=== PATIENT | male | born 1960 | race Caucasian/White ===

== ENCOUNTER 2019-11-03 21:04 | Emergency (ER) | payer SELFPAY ==
--- NOTE | 2019-11-03 21:06 | ED_ITS ---
Entered by Nelida Leal, acting as scribe for Lesley Delgado Documented by User: Lesley Delgado 11/03/19 21:06 HPI - Fall General: Chief Complaint: Syncope Stated Complaint: FALL Time Seen by Provider: 11/03/19 21:25 PFS ED PFSH: Social History (Updated 10/03/19 @ 14:29 by Kaitlin Yang LPN) Smoking and tobacco status: never smoked Alcohol intake: never History of recent travel: No Course Vital Signs: Vital signs: Vital Signs Temperature 98 F 11/03/19 21:19 Pulse Rate 82 11/03/19 21:31 Respiratory Rate 22 H 11/03/19 21:31 Blood Pressure 135/83 11/03/19 21:31 Pulse Oximetry 97 11/03/19 21:31 MDM - Fall Lab Data: Labs: Lab Results 11/03/19 11/03/19 11/03/19 Range/Units 22:04 22:04 22:04 WBC 6.5 (4.0-10.0) 10^3/ uL RBC 4.71 (4.1-5.3) 10^6/u L Hgb 15.6 (11.7-16.6) g/dL Hct 47.7 (42.0-52.0) % MCV 101.3 H (80-94) fL MCH 33.1 (28.0-34.0) pg MCHC 32.7 (30.0-36.0) g/dL RDW 12.6 (12.1-15.1) % Plt Count 267 (130-400) 10^3/c mm MPV 9.2 (7.4-10.4) fL Neut % (Auto) 64.5 % Lymph % (Auto) 22.3 % [place] % (Auto) 11.2 % Eos % (Auto) 0.6 % Baso % (Auto) 0.9 % Neut # (Auto) 4.2 (1.8-7.7) 10^3/u L Lymph # (Auto) 1.4 (0.8-4.8) 10^3/u L [place] # (Auto) 0.7 (0.2-0.9) 10^3/u L Eos # (Auto) 0.0 (0.0-0.8) 10^3/u L Baso # (Auto) 0.1 (0.0-0.1) 10^3/u L Nucleated RBC % (a uto) 0 % Nucleated RBCs # 0.0 /100WBC Sodium 134 L (136-145) mmol/L Potassium 4.4 (3.5-5.1) mmol/L Chloride 90 L (98-107) mmol/L Carbon Dioxide 22 (22-29) mmol/L Anion Gap 26.4 H (5-19) BUN 8 (6-20) mg/dL Creatinine 0.7 (0.7-1.2) mg/dL GFR Calculation 115.8 (90-130) mL/min Glucose 93 (65-115) mg/dL Calculated Osmolal ity 274 L (285-295) mOsm/k g Calcium 8.9 (8.5-10.5) mg/dL Magnesium 2.5 H (1.7-2.3) mg/dL Total Bilirubin 0.8 (0.15-1.2) mg/dL AST 133 H (0-40) U/L ALT 86 H (0-41) U/L Alkaline Phosphata se 92 (40-130) IU/L Creatine Kinase 153 (39-308) U/L Troponin T Baselin e 16 H (0-15) ng/mL NT-Pro-B Natriuret Pep 21 (0-125) pg/mL Total Protein 7.0 (6.6-8.7) g/dL Albumin 4.1 (3.5-5.2) g/dL Globulin 2.9 (1.3-4.6) g/dL Ethyl Alcohol 310 H* (0-10) mg/dL Discharge Plan Discharge Prescriptions: No Action aspirin 500 mg tablet 500 mg PO Q4H RF: 0 acetaminophen [Tylenol 8 Hour] 650 mg tablet extended release 650 mg PO Q8H RF: 0 magnesium salicylate 600 mg tablet 1,200 mg PO DAILY RF: 0 ascorbic acid (vitamin C) 1,000 mg tablet 1 gm PO DAILY RF: 0 metoprolol tartrate 50 mg tablet 50 mg PO BID 30 Days Qty: 60 RF: 2 vitamin B complex [Super B-50 Complex] Capsule 1 cap PO DAILY RF: 0 cetirizine [Zyrtec] 10 mg tablet 10 mg PO DAILY RF: 0 lisinopril-hydrochlorothiazide 10-12.5 mg tablet 1 tab PO DAILY 30 Days Qty: 30 RF: 2 omeprazole 20 mg capsule,delayed release(DR/EC) 20 mg PO DAILY 30 Days Qty: 30 RF: 2 famotidine [Pepcid] 20 mg tablet 20 mg PO .at bedtime 30 Days Qty: 30 RF: 2 trazodone 50 mg tablet 50 mg PO .at bedtime PRN (Reason: insomnia) 30 Days Qty: 30 RF: 2 diclofenac sodium 1 % gel 2 gm TOPICAL .twice daily 30 Days Qty: 100 RF: 5 Coding Level of Care Code ED Barrel Builder for Chg Fwd Exam Comprehensive Documented by User: KIRA Klein 11/03/19 23:23 HPI - Fall General: Chief Complaint: Syncope Stated Complaint: FALL Time Seen by Provider: 11/03/19 21:25 Source: patient Mode of arrival: ambulatory Limitations: no limitations History of Present Illness: HPI Narrative: Patient comes in today for complaints of passing out and falling. Patient now has complaints of low back pain due to his fall. Patient describes event as he got up to go to bed to lay down in order to get the swelling L of his feet and then the next time he remembered anything is he woke up finding himself on the floor approximately 5 hours from the time he went to get up. Patient appears well. Patient does appear to moderate pain due to his low back discomfort. Patient does have a history of atrial fib GERD,coronary artery disease ,essential hypertension ,cervical stenosis ,fibromyalgia and mastitis in the right breast. Review of Systems General: Reports: 10 or more systems reviewed and unremarkable except in HPI and below Musc: Reports: back pain Neuro: Reports: other (syncopal episode) [facility] ED PFSH: Social History (Updated 10/03/19 @ 14:29 by Kaitlin Yang LPN) Smoking and tobacco status: never smoked Alcohol intake: never History of recent travel: No Physical Exam Const: COMMON NORMALS: no apparent distress and oriented x3 GENERAL APPEARANCE: cooperative HENMT: COMMON NORMALS: normocephalic, external ears normal, EAC's normal, TM's normal bilaterally and external nose normal HEAD & SCALP: normal to inspection and normocephalic FACE & SINUS: normal facial exam NOSE: external nose normal GENERAL EAR: hearing not grossly impaired EXTERNAL EAR: Yes external ears normal EXTERNAL AUDITORY CANAL: EAC's normal TYMPANIC MEMBRANE: TM's normal bilaterally MOUTH: oral and palatal mucosa normal THROAT: posterior oropharynx normal Eye: COMMON NORMALS: PERRL and EOMs intact bilaterally PUPIL: Yes PERRL Neck/C-Spine: COMMON NORMALS: full ROM and no lymphadenopathy Lymph: LYMPHATIC: no lymphedema noted Chest: COMMONS NORMALS: inspection of chest normal and palpation of chest normal Resp: COMMON NORMALS: normal respiratory effort and clear to auscultation bilaterally AUSCULTATION: clear to auscultation bilaterally Cardio: COMMON NORMALS: regular rate and regular rhythm RATE: regular rate RHYTHM: regular rhythm GI: COMMON NORMALS: normal to inspection, nondistended, normoactive bowel sounds and non-tender : COMMON NORMALS: Yes no CVA tenderness BLADDER/KIDNEY EXAM: Yes no CVA tenderness Back/Pelvis: COMMON NORMALS: no CVA tenderness and thoracic and lumbar spine normal to inspection LUMBAR SPINE/LOWER BACK: Yes paraspinal muscle tenderness Extremity: COMMON NORMALS: normal to inspection GENERAL: No edema Neuro: COMMON NORMALS: oriented x3, moves all extremities and no focal motor deficits Psych: COMMON NORMALS: mental status grossly normal and cooperative Skin: COMMON NORMALS: no rashes or lesions noted GENERAL SKIN EXAM: no rashes or lesions noted Course ED course: 2305, discussed with patient his increased blood alcohol level at 310. Patient did report drinking 2 drinks today when confronted that it would take more than 2 drinks to become a blood alcohol level of 310 he did state he has been using alcohol to control his pain. Discussed with patient that alcohol can increase his atrial fib problem and cause more issues with his pain patient was tearful at times due to this and reports difficulty with his pain. I offered referral to pain management to assist further with his chronic neck and back pain. Patient did agree to this. Patient reports he would work on controlling his drinking better and reduce his drinks to no more than 2 a day. Vital Signs: Vital signs: Vital Signs Temperature 98 F 11/03/19 21:19 Pulse Rate 82 11/03/19 21:31 Respiratory Rate 22 H 11/03/19 21:31 Blood Pressure 135/83 11/03/19 21:31 Pulse Oximetry 97 11/03/19 21:31 MDM - Fall Lab Data: Labs: Lab Results 11/03/19 11/03/19 11/03/19 Range/Units 22:04 22:04 22:04 WBC 6.5 (4.0-10.0) 10^3/ uL RBC 4.71 (4.1-5.3) 10^6/u L Hgb 15.6 (11.7-16.6) g/dL Hct 47.7 (42.0-52.0) % MCV 101.3 H (80-94) fL MCH 33.1 (28.0-34.0) pg MCHC 32.7 (30.0-36.0) g/dL RDW 12.6 (12.1-15.1) % Plt Count 267 (130-400) 10^3/c mm MPV 9.2 (7.4-10.4) fL Neut % (Auto) 64.5 % Lymph % (Auto) 22.3 % [place] % (Auto) 11.2 % Eos % (Auto) 0.6 % Baso % (Auto) 0.9 % Neut # (Auto) 4.2 (1.8-7.7) 10^3/u L Lymph # (Auto) 1.4 (0.8-4.8) 10^3/u L [place] # (Auto) 0.7 (0.2-0.9) 10^3/u L Eos # (Auto) 0.0 (0.0-0.8) 10^3/u L Baso # (Auto) 0.1 (0.0-0.1) 10^3/u L Nucleated RBC % (a uto) 0 % Nucleated RBCs # 0.0 /100WBC Sodium 134 L (136-145) mmol/L Potassium 4.4 (3.5-5.1) mmol/L Chloride 90 L (98-107) mmol/L Carbon Dioxide 22 (22-29) mmol/L Anion Gap 26.4 H (5-19) BUN 8 (6-20) mg/dL Creatinine 0.7 (0.7-1.2) mg/dL GFR Calculation 115.8 (90-130) mL/min Glucose 93 (65-115) mg/dL Calculated Osmolal ity 274 L (285-295) mOsm/k g Calcium 8.9 (8.5-10.5) mg/dL Magnesium 2.5 H (1.7-2.3) mg/dL Total Bilirubin 0.8 (0.15-1.2) mg/dL AST 133 H (0-40) U/L ALT 86 H (0-41) U/L Alkaline Phosphata se 92 (40-130) IU/L Creatine Kinase 153 (39-308) U/L Troponin T Baselin e 16 H (0-15) ng/mL NT-Pro-B Natriuret Pep 21 (0-125) pg/mL Total Protein 7.0 (6.6-8.7) g/dL Albumin 4.1 (3.5-5.2) g/dL Globulin 2.9 (1.3-4.6) g/dL Ethyl Alcohol 310 H* (0-10) mg/dL EKG Data^: EKG 1: Attestation: I personally reviewed and interpreted this EKG as follows: (2222, SR, regular rate 78 bpm, no ectopy, no ST elevation) Discharge Plan Discharge Prescriptions: No Action aspirin 500 mg tablet 500 mg PO Q4H RF: 0 acetaminophen [Tylenol 8 Hour] 650 mg tablet extended release 650 mg PO Q8H RF: 0 magnesium salicylate 600 mg tablet 1,200 mg PO DAILY RF: 0 ascorbic acid (vitamin C) 1,000 mg tablet 1 gm PO DAILY RF: 0 metoprolol tartrate 50 mg tablet 50 mg PO BID 30 Days Qty: 60 RF: 2 vitamin B complex [Super B-50 Complex] Capsule 1 cap PO DAILY RF: 0 cetirizine [Zyrtec] 10 mg tablet 10 mg PO DAILY RF: 0 lisinopril-hydrochlorothiazide 10-12.5 mg tablet 1 tab PO DAILY 30 Days Qty: 30 RF: 2 omeprazole 20 mg capsule,delayed release(DR/EC) 20 mg PO DAILY 30 Days Qty: 30 RF: 2 famotidine [Pepcid] 20 mg tablet 20 mg PO .at bedtime 30 Days Qty: 30 RF: 2 trazodone 50 mg tablet 50 mg PO .at bedtime PRN (Reason: insomnia) 30 Days Qty: 30 RF: 2 diclofenac sodium 1 % gel 2 gm TOPICAL .twice daily 30 Days Qty: 100 RF: 5 Coding Level of Care Code ED Barrel Builder for [place] Fwd Exam Comprehensive
[2019-11-03 21:19] VITALS: BP 135/83; PULSE 82; RESP 24; TEMP 36.6; O2SAT 97; BMI 24.4
[2019-11-03 21:31] VITALS: BP 135/83; PULSE 82; RESP 22; O2SAT 97
--- NOTE | 2019-11-03 21:32 | ECG_ITS ---
Measurements Intervals [place] Rate: 78 P: -13 MD: 167 QRS: -12 QRSD: 113 T: 109 QT: 309 QTc: 353 SINUS RHYTHM MODERATE INTRAVENTRICULAR CONDUCTION DELAY [110+ ms QRS DURATION] ST DEVIATION AND MODERATE T-WAVE ABNORMALITY, CONSIDER LATERAL ISCHEMIA [-0.1+ mV mV T WAVE IN I/aVL/V5/V6] No previous ECG available for comparison Electronically Signed On 11-04-2019 9:11:49 CDT by Alice Gordon [email or web address]
--- NOTE | 2019-11-03 21:32 | CTR_ITS ---
PROCEDURE INFORMATION: Exam: CT Head Without Contrast Exam date and time: 11/03/2019 9:35 PM Age: 59 years old Clinical indication: Syncope and collapse; Patient HX: Syncope episode TECHNIQUE: Imaging protocol: Computed tomography of the head without contrast. Total DLP: 894.88 mGy-cm Radiation optimization: All CT scans at this facility use at least one of these dose optimization techniques: automated exposure control; mA and/or kV adjustment per patient size (includes targeted exams where dose is matched to clinical indication); or iterative reconstruction. COMPARISON: No relevant prior studies available. FINDINGS: Brain: There is mild diffuse cerebral atrophy. Ventricles: Normal. No ventriculomegaly. Bones/joints: Unremarkable. No acute fracture. Sinuses: Visualized sinuses are unremarkable. No fluid levels. Mastoid air cells: Visualized mastoid air cells are well aerated. Soft tissues: Unremarkable. CT/CT head wo con* [id number] IMPRESSION: There are no acute intracranial findings. Radiation Dose CTDIVOL = (mGy): DLP = 894.88 (mGy-cm)
--- NOTE | 2019-11-03 21:32 | CTR_ITS ---
PROCEDURE INFORMATION: Exam: CT Lumbar Spine Without Contrast Exam date and time: 11/03/2019 9:35 PM Age: 59 years old Clinical indication: Low back pain; Patient HX: C/O lbp after a syncope episode; Additional info: Fall pain TECHNIQUE: Imaging protocol: Computed tomography images of the lumbar spine without contrast. Total DLP: 2363.22 mGy-cm Radiation optimization: All CT scans at this facility use at least one of these dose optimization techniques: automated exposure control; mA and/or kV adjustment per patient size (includes targeted exams where dose is matched to clinical indication); or iterative reconstruction. COMPARISON: No relevant prior studies available. FINDINGS: Vertebrae: No acute fracture. Normal alignment. Discs/Spinal canal/Neural foramina: No disc herniations. No spinal canal stenosis. No neural foraminal narrowing. Soft tissues: Unremarkable. CT/CT lumbar spine wo con* [id number] IMPRESSION: No acute findings. Radiation Dose CTDIVOL = (mGy): DLP = 2363.22 (mGy-cm)
--- NOTE | 2019-11-03 21:32 | XR_ITS ---
WS: [id number] XR chest 1V portable [id number] REASON FOR EXAM: syncope FINDINGS: The heart and mediastinal interfaces normal. A fat pad changes are seen at the left costophrenic angle. The lung dela cruz are well aerated. No pneumonia, pulmonary edema, pleural effusion, mass effect, or pn eumothorax. The hilum and apices normal. XR/XR chest 1V portable [id number] IMPRESSION: Negative chest for active pathology.
[2019-11-03] MEDS: ketorolac 30 mg/mL INJ 15 MG IVP (21:55)
[2019-11-03] MEDS: morphine 4 mg/mL SDV 1 mL IVP ×2 (21:55→22:36)
[2019-11-03 22:16] LABS: Basophils # 0.1 10^3/uL (0.0-0.1); Basophils % 0.9 %; Eosinophils % 0.6 %; Hematocrit 47.7 % (42.0-52.0); Hemoglobin 15.6 g/dL (11.7-16.6); Lymphocytes # 1.4 10^3/uL (0.8-4.8); Lymphocytes % 22.3 %; Mean Corpuscular HGB Conc 32.7 g/dL (30.0-36.0); Mean Corpuscular Hemoglobin 33.1 pg (28.0-34.0); Mean Corpuscular Volume 101.3 fL (80-94); Mean Platelet Volume 9.2 fL (7.4-10.4); Monocytes # 0.7 10^3/uL (0.2-0.9); Monocytes % 11.2 %; Neutrophils # 4.2 10^3/uL (1.8-7.7); Neutrophils % 64.5 %; Nucleated Red Blood Cells % 0 %; Platelet Count 267 10^3/cmm (130-400); Red Blood Count 4.71 10^6/uL (4.1-5.3); Red Cell Distribution Width 12.6 % (12.1-15.1); White Blood Count 6.5 10^3/uL (4.0-10.0)
[2019-11-03 22:41] LABS: Alanine Aminotransferase 86 U/L (0-41); Albumin Level 4.1 g/dL (3.5-5.2); Alkaline Phosphatase 92 IU/L (40-130); Anion Gap 26.4 (5-19); Aspartate Amino Transferase 133 U/L (0-40); Blood Urea Nitrogen 8 mg/dL (6-20); Calcium 8.9 mg/dL (8.5-10.5); Carbon Dioxide 22 mmol/L (22-29); Chloride 90 mmol/L (98-107); Creatine Phosphokinase 153 U/L (39-308); Globulin 2.9 g/dL (1.3-4.6); Glomerular Filtration Rate 115.8 mL/min (90-130); Glucose 93 mg/dL (65-115); Magnesium 2.5 mg/dL (1.7-2.3); NT Pro B Type Natriuretic Pept 21 pg/mL (0-125); Osmolality Calculated 274 mOsm/kg (285-295); Potassium 4.4 mmol/L (3.5-5.1); Sodium 134 mmol/L (136-145); Total Bilirubin 0.8 mg/dL (0.15-1.2)
[2019-11-03 22:42] LABS: Alcohol Level 310 mg/dL (0-10)
[2019-11-03 22:56] LABS: Troponin(5th) Baseline 16 ng/mL (0-15)
[2019-11-03] MEDS: sodium chloride 0.9% 1,000 ML 999 ML IV (23:07)
[2019-11-04 00:01] VITALS: BP 148/92; PULSE 88; RESP 16; O2SAT 99
--- NOTE | 2019-11-04 00:19 | W.ED.SYNCOPE ---
HPI - Syncope General: Chief Complaint: Syncope Stated Complaint: FALL Time Seen by Provider: 11/03/19 21:25 History of Present Illness: HPI narrative: Patient comes in today by EMS for syncopal episode. Patient reported that he had got up out of his chair and headed into laydown on his bed when the next time he woke up it was 5 hours later and he found himself on the floor. Patient has a history of hypertension, coronary artery disease, GERD, atrial fib, fibromyalgia, and chronic pain. Patient appears well. Patient appears in no acute distress. Patient reports occasional drinking, denies smoking or use of drugs. Review of Systems General: Reports: 10 or more systems reviewed and unremarkable except in HPI and below Neuro: Reports: other (syncope) PFS ED PFSH: Social History (Updated 10/03/19 @ 14:29 by Kaitlin Yang LPN) Smoking and tobacco status: never smoked Alcohol intake: never History of recent travel: No Physical Exam Const: COMMON NORMALS: no apparent distress and oriented x3 GENERAL APPEARANCE: cooperative HENMT: COMMON NORMALS: normocephalic, external ears normal, EAC's normal, TM's normal bilaterally and external nose normal HEAD & SCALP: normal to inspection and normocephalic FACE & SINUS: normal facial exam NOSE: external nose normal GENERAL EAR: hearing not grossly impaired EXTERNAL EAR: Yes external ears normal EXTERNAL AUDITORY CANAL: EAC's normal TYMPANIC MEMBRANE: TM's normal bilaterally MOUTH: oral and palatal mucosa normal THROAT: posterior oropharynx normal Eye: COMMON NORMALS: PERRL and EOMs intact bilaterally PUPIL: Yes PERRL Neck/C-Spine: COMMON NORMALS: full ROM and no lymphadenopathy Lymph: LYMPHATIC: no lymphedema noted Chest: COMMONS NORMALS: inspection of chest normal and palpation of chest normal Resp: COMMON NORMALS: normal respiratory effort and clear to auscultation bilaterally AUSCULTATION: clear to auscultation bilaterally Cardio: COMMON NORMALS: regular rate and regular rhythm RATE: regular rate RHYTHM: regular rhythm GI: COMMON NORMALS: normal to inspection, nondistended, normoactive bowel sounds and non-tender : COMMON NORMALS: Yes no CVA tenderness BLADDER/KIDNEY EXAM: Yes no CVA tenderness Back/Pelvis: COMMON NORMALS: no CVA tenderness and thoracic and lumbar spine normal to inspection Extremity: COMMON NORMALS: normal to inspection GENERAL: No edema Neuro: COMMON NORMALS: oriented x3, moves all extremities and no focal motor deficits Psych: COMMON NORMALS: mental status grossly normal and cooperative Skin: COMMON NORMALS: no rashes or lesions noted GENERAL SKIN EXAM: no rashes or lesions noted Course ED course: 2299, discussed with patient his elevated alcohol level. Patient reports that he drinks in order to control his pain. Patient appears upset about the high levels of his alcohol. Patient reports that he started drinking when he was unable to have medication for his pain. Discussed with patient the concerns for his atrial fib being caused by alcoholism. Patient reports understanding and states he will try to decrease his alcohol consumption to 2 drinks a day. Vital Signs: Vital signs: Vital Signs Temperature 98 F 11/03/19 21:19 Pulse Rate 82 11/03/19 21:31 Respiratory Rate 22 H 11/03/19 21:31 Blood Pressure 135/83 11/03/19 21:31 Pulse Oximetry 97 11/03/19 21:31 MDM - Syncope MDM Narrative: Medical decision making narrative: Patient comes in today with an episode of syncope versus near syncope. Patient lost consciousness and was out for about 4 hours. Exam noted abdomen soft nontender skin was warm and dry patient had a tremor at rest. Vital signs were normal. Respirations were even lungs were clear to auscultation. Mild lower extremity edema below the mid lower leg. Differential diagnosis includes ACS, CVA, substance abuse, vasovagal syndrome, injury. CT of the head was negative for any abnormality. CT of the lumbar spine was negative for any abnormality. EKG was in sinus rhythm without any change at 2 hours. Initial troponin was at 15 with the second troponin being 17 but with no significant change on troponin delta. Blood cell count was normal. Patient sodium was 134 potassium was 4.4. EtOH was 310. Patient was medicated with 100 mg thiamine, and 1 L of IV fluids for alcohol ingestion. Patient had been given Toradol and morphine for complaints of back pain. Patient was monitored for 3 hours continued to be alert and oriented without any deficits. Patient was able to ambulate prior to discharge and was released to 's care. Spouse reported understanding and will work with regarding his alcohol abuse. Patient was written prescription for furosemide to assist with his swelling in his lower extremities. Lab Data: Labs: Lab Results 11/03/19 11/03/19 11/03/19 Range/Units 22:04 22:04 22:04 WBC 6.5 (4.0-10.0) 10^3/ uL RBC 4.71 (4.1-5.3) 10^6/u L Hgb 15.6 (11.7-16.6) g/dL Hct 47.7 (42.0-52.0) % MCV 101.3 H (80-94) fL MCH 33.1 (28.0-34.0) pg MCHC 32.7 (30.0-36.0) g/dL RDW 12.6 (12.1-15.1) % Plt Count 267 (130-400) 10^3/c mm MPV 9.2 (7.4-10.4) fL Neut % (Auto) 64.5 % Lymph % (Auto) 22.3 % [place] % (Auto) 11.2 % Eos % (Auto) 0.6 % Baso % (Auto) 0.9 % Neut # (Auto) 4.2 (1.8-7.7) 10^3/u L Lymph # (Auto) 1.4 (0.8-4.8) 10^3/u L [place] # (Auto) 0.7 (0.2-0.9) 10^3/u L Eos # (Auto) 0.0 (0.0-0.8) 10^3/u L Baso # (Auto) 0.1 (0.0-0.1) 10^3/u L Nucleated RBC % (a uto) 0 % Nucleated RBCs # 0.0 /100WBC Sodium 134 L (136-145) mmol/L Potassium 4.4 (3.5-5.1) mmol/L Chloride 90 L (98-107) mmol/L Carbon Dioxide 22 (22-29) mmol/L Anion Gap 26.4 H (5-19) BUN 8 (6-20) mg/dL Creatinine 0.7 (0.7-1.2) mg/dL GFR Calculation 115.8 (90-130) mL/min Glucose 93 (65-115) mg/dL Calculated Osmolal ity 274 L (285-295) mOsm/k g Calcium 8.9 (8.5-10.5) mg/dL Magnesium 2.5 H (1.7-2.3) mg/dL Total Bilirubin 0.8 (0.15-1.2) mg/dL AST 133 H (0-40) U/L ALT 86 H (0-41) U/L Alkaline Phosphata se 92 (40-130) IU/L Creatine Kinase 153 (39-308) U/L Troponin T Baselin e 16 H (0-15) ng/mL Troponin T 120 Min sly (0-15) ng/mL Delta Troponin T (0-10) ABS# NT-Pro-B Natriuret Pep 21 (0-125) pg/mL Total Protein 7.0 (6.6-8.7) g/dL Albumin 4.1 (3.5-5.2) g/dL Globulin 2.9 (1.3-4.6) g/dL Urine Color (Yellow) Urine Appearance (CLEAR) Urine pH (5-7) Ur Specific Gravit y (1.005-1.030) Urine Protein (Negative) Urine Glucose (UA) (Normal) Urine Ketones (Negative) Urine Blood (Negative) Urine Nitrate (Negative) Urine Bilirubin (NEGATIVE) Urine Urobilinogen (Negative) mg/dL Ur Leukocyte Ca ase (Negative) Ethyl Alcohol 310 H* (0-10) mg/dL 11/04/19 11/04/19 Range/Units 00:08 00:43 WBC (4.0-10.0) 10^3/ uL RBC (4.1-5.3) 10^6/u L Hgb (11.7-16.6) g/dL Hct (42.0-52.0) % MCV (80-94) fL MCH (28.0-34.0) pg MCHC (30.0-36.0) g/dL RDW (12.1-15.1) % Plt Count (130-400) 10^3/c mm MPV (7.4-10.4) fL Neut % (Auto) % Lymph % (Auto) % [place] % (Auto) % Eos % (Auto) % Baso % (Auto) % Neut # (Auto) (1.8-7.7) 10^3/u L Lymph # (Auto) (0.8-4.8) 10^3/u L [place] # (Auto) (0.2-0.9) 10^3/u L Eos # (Auto) (0.0-0.8) 10^3/u L Baso # (Auto) (0.0-0.1) 10^3/u L Nucleated RBC % (a uto) % Nucleated RBCs # /100WBC Sodium (136-145) mmol/L Potassium (3.5-5.1) mmol/L Chloride (98-107) mmol/L Carbon Dioxide (22-29) mmol/L Anion Gap (5-19) BUN (6-20) mg/dL Creatinine (0.7-1.2) mg/dL GFR Calculation (90-130) mL/min Glucose (65-115) mg/dL Calculated Osmolal ity (285-295) mOsm/k g Calcium (8.5-10.5) mg/dL Magnesium (1.7-2.3) mg/dL Total Bilirubin (0.15-1.2) mg/dL AST (0-40) U/L ALT (0-41) U/L Alkaline Phosphata se (40-130) IU/L Creatine Kinase (39-308) U/L Troponin T Baselin e (0-15) ng/mL Troponin T 120 Min sly 17.08 H (0-15) ng/mL Delta Troponin T 1.08 (0-10) ABS# NT-Pro-B Natriuret Pep (0-125) pg/mL Total Protein (6.6-8.7) g/dL Albumin (3.5-5.2) g/dL Globulin (1.3-4.6) g/dL Urine Color Yellow (Yellow) Urine Appearance Clear (CLEAR) Urine pH 6.5 (5-7) Ur Specific Gravit y 1.010 (1.005-1.030) Urine Protein Neg (Negative) Urine Glucose (UA) Norm (Normal) Urine Ketones 1+ H (Negative) Urine Blood Neg (Negative) Urine Nitrate Negative (Negative) Urine Bilirubin Neg (NEGATIVE) Urine Urobilinogen Norm (Negative) mg/dL Ur Leukocyte Ca ase Negative (Negative) Ethyl Alcohol (0-10) mg/dL EKG Data^: EKG 1: Attestation: I personally reviewed and interpreted this EKG as follows: (2228, SR regular rate 77 bpm, no ectopy, no ST elevation) EKG 2: Attestation: I personally reviewed and interpreted this EKG as follows: (0033, SR, regular rate 78 bpm, no ectopy, no ST elevation, no change from prior) Discharge Plan Discharge Patient Disposition: Home, Self-Care Clinical Impression: Alcohol intoxication Qualifiers: Complication of substance-induced condition: uncomplicated Qualified Code(s): F10.920 - Alcohol use, unspecified with intoxication, uncomplicated Chronic back pain Qualifiers: Back pain location: back pain in unspecified location Back pain laterality: unspecified Qualified Code(s): M54.9 - Dorsalgia, unspecified Condition: Stable Prescriptions: New furosemide 20 mg tablet 20 mg PO DAILY PRN (Reason: edema) Qty: 7 RF: 0 No Action aspirin 500 mg tablet 500 mg PO Q4H RF: 0 acetaminophen [Tylenol 8 Hour] 650 mg tablet extended release 650 mg PO Q8H RF: 0 magnesium salicylate 600 mg tablet 1,200 mg PO DAILY RF: 0 ascorbic acid (vitamin C) 1,000 mg tablet 1 gm PO DAILY RF: 0 metoprolol tartrate 50 mg tablet 50 mg PO BID 30 Days Qty: 60 RF: 2 vitamin B complex [Super B-50 Complex] Capsule 1 cap PO DAILY RF: 0 cetirizine [Zyrtec] 10 mg tablet 10 mg PO DAILY RF: 0 lisinopril-hydrochlorothiazide 10-12.5 mg tablet 1 tab PO DAILY 30 Days Qty: 30 RF: 2 omeprazole 20 mg capsule,delayed release(DR/EC) 20 mg PO DAILY 30 Days Qty: 30 RF: 2 famotidine [Pepcid] 20 mg tablet 20 mg PO .at bedtime 30 Days Qty: 30 RF: 2 trazodone 50 mg tablet 50 mg PO .at bedtime PRN (Reason: insomnia) 30 Days Qty: 30 RF: 2 diclofenac sodium 1 % gel 2 gm TOPICAL .twice daily 30 Days Qty: 100 RF: 5 Discharge Orders: Discharge Order (Routine); Ordered 11/04/19 Ordered By: Jose Cruz Referrals: Kamilla Finley MD [Family Provider] - Discharge Diet: Usual diet Discharge Activity: Increase activity as tolerated Patient Instructions: Chronic Pain (ED) Activity Restrictions/Additional Instructions: Home and rest Drink plenty of fluids Activity as tolerated Drink no more than 2 alcohol containing beverages a day Case management to assist with pain management Follow-up with primary care regarding alcohol abuse Coding Level of Care Code ED [employer] Department Supervisor for [employer] Fwd Exam Comprehensive
[2019-11-04 00:36] LABS: Troponin 5 2HR 17.08 ng/mL (0-15); Troponin 5 2HR Delta 1.08 ABS# (0-10)
[2019-11-04 00:50] LABS: Add Urine Microscopic? NO
[2019-11-04 00:52] LABS: Bilirubin Urine Neg (NEGATIVE); Blood Urine Neg (Negative); Glucose Urine UA Norm (Normal); Ketones Urine 1+ (Negative); Leukocyte Esterase Urine Negative (Negative); Nitrate Urine Negative (Negative); Protein Urine Neg (Negative); Urine Appearance Clear (CLEAR); Urine Color Yellow (Yellow); Urobilinogen Urine Norm (Negative); pH Urine 6.5 (5-7)
[2019-11-04 01:03] VITALS: BP 138/74; PULSE 90; RESP 18; O2SAT 96
[2019-11-04 01:04] VITALS: BP 138/74; PULSE 90; RESP 18; O2SAT 96
[2019-11-04 01:28] LABS: Amphetamines Screen Urine Negative (Negative); Barbiturates Screen Urine Negative (Negative); Benzodiazepines Screen Urine Negative (Negative); Cocaine Screen Urine Negative (Negative); Opiate Screen Urine Positive (Negative); PCP Screen Urine Negative (Negative); THC Screen Urine Negative (Negative)
--- NOTE | 2019-11-05 12:27 | DCPLANNER ---
manager of financial reporting had message to schedule a follow up appointment for patient with pain management. manager of financial reporting called patient, unable to speak with patient at this time, left a voicemail for patient to return case planner phone call. manager of financial reporting was going to explain to patient, that case technician was unable to refer patient to pain management, that the referral to pain management would need to come from patients primary care physician.
== END 2019-11-04 01:08 | disposition home or self-care (01) ==
PROVIDERS: Emergency Provider Nurse Practitioner Family; Family Provider Family Medicine
DX: F10.129 Alcohol abuse with intoxication, unspecified (principal); M54.9 Dorsalgia, unspecified; G89.29 Other chronic pain; I48.91 Unspecified atrial fibrillation; I10 Essential (primary) hypertension; I25.10 Atherosclerotic heart disease of native coronary artery without angina pectoris; Z79.82 Long term (current) use of aspirin
CPT/HCPCS: 12345; 70450; 71045; 72131; 80053; 80306; 80307; 81003; 82550; 83735; 83880; 84484; 85025; 93005; 93010; 96361; 96374; 96375; 96376; 99283; 99284; J1885; J2270; J3411; J7030

== ENCOUNTER 2020-03-31 20:22 | Emergency (ER) | payer SELFPAY ==
[2020-03-31 20:25] VITALS: BP 163/101; PULSE 97; RESP 18; TEMP 36.6; O2SAT 98; BMI 32.5
--- NOTE | 2020-03-31 20:55 | ED_ITS ---
HPI - General Adult General: Chief complaint: General Medical Stated complaint: PAIN ALL OVER/MHE Time Seen by Provider: 03/31/20 20:32 History of Present Illness: HPI narrative: Patient is a 59-year-old male who comes to the ED via EMS due to back pain. Patient is extremely emotional and upset due to pain. Patient said his called EMS to get him help because of his severe pain today. He says all of his pain is located in his mid and lower back. Patient does not want to be here and states that he would like to go home. He is refusing any blood work. Patient denies any SI, HI or hallucinations. EMS gave 30 mg of IV Toradol in route to [facility] Associated symptoms: Deny chest pain, dyspnea, headache(s), nausea, rash, palpitations or vomiting Review of Systems Const: Denies: fever(s), chills or fatigue Eyes: Denies: change in vision or eye discomfort ENMT: Denies: throat pain, odynophagia, nasal discharge or nasal congestion Card: Denies: chest pain, palpitations, edema, swelling of feet/ankles, dyspnea on exertion or orthopnea Resp: Denies: dyspnea, productive cough or non-productive cough GI: Denies: abdominal pain, nausea, vomiting, diarrhea, constipation or hematochezia : Denies: flank pain, difficulty urinating, dysuria or hematuria Musc: Reports: back pain; Denies: neck pain or extremity swelling Skin/Breast: Denies: rash or new lesions Neuro: Denies: headache(s), numbness in extremities or weakness in extremities PFS ED PFSH: Medical History Cervical stenosis of spine Chronic GERD Coronary artery disease Essential hypertension Fibromyalgia Insomnia Right bundle branch block (RBBB) Social History Smoking and tobacco status: never smoked Alcohol intake: never History of recent travel: No Physical Exam Const: COMMON NORMALS: no acute distress, patient oriented x3 and alert GENERAL APPEARANCE: cooperative and comfortable HENMT: COMMON NORMALS: normocephalic HEAD & SCALP: normocephalic MOUTH: Normal oral and palatal mucosa present THROAT: posterior oropharynx normal and uvula midline Eye: COMMON NORMALS: Equal, round and reactive pupils present PUPIL: Yes Equal, round and reactive pupils present Neck/C-Spine: COMMON NORMALS: supple GENERAL: Yes normal visual inspection Resp: COMMON NORMALS: normal respiratory effort, No retractions, No use of accessory muscles and clear to auscultation bilaterally AUSCULTATION: clear to auscultation bilaterally Cardio: COMMON NORMALS: regular rate, regular rhythm, S1 normal heart sound present, S2 normal heart sound present, No gallops present (Cardio), No clicks present (Cardio), No murmurs present (Cardio) and Peripheral pulses 2+ throughout RATE: regular rate RHYTHM: regular rhythm HEART SOUNDS: S1 normal heart sound present and S2 normal heart sound present PERIPHERAL PULSES: Peripheral pulses 2+ throughout GI: COMMON NORMALS: Normal to inspection, nondistended, normoactive bowel sounds present, Soft to palpation, non-tender and no masses PALPATION: Yes Soft to palpation : COMMON NORMALS: Yes no CVA tenderness BLADDER/KIDNEY EXAM: Yes no CVA tenderness Back/Pelvis: COMMON NORMALS: no CVA tenderness THORACIC SPINE/UPPER BACK: Yes paraspinal muscle tenderness Thoracic paraspinal muscle tenderness: bilateral LUMBAR SPINE/LOWER BACK: Yes paraspinal muscle tenderness Lumbar paraspinal muscle tenderness: bilateral Extremity: COMMON NORMALS: normal to inspection and no pedal edema Neuro: COMMON NORMALS: patient oriented x3 and moves all extremities SENSORIUM/ORIENTATION: Yes alert Skin: COMMON NORMALS: no rashes or lesions noted GENERAL SKIN EXAM: no rashes or lesions noted and dry skin Course Reevaluation(s): Reevaluation #1: Patient does not want to be here and states that he would like to go home. He is refusing any blood work. Time: 21:13 Reevaluation #2: I talked with patient about about plan of care since he was refusing any labs. Patient denies any thoughts of harming himself or others. Denies any hallucinations. Patient requested some Tylenol and aspirin for the pain while here in the ED and then would like to be discharged. Vital Signs: Vital signs: Vital Signs Temperature 97.7 F 03/31/20 22:45 Pulse Rate 76 03/31/20 22:45 Respiratory Rate 20 H 03/31/20 22:45 Blood Pressure 144/97 03/31/20 22:45 Pulse Oximetry 97 03/31/20 22:45 MDM - General Adult MDM Narrative: Medical decision making narrative: Patient is a 59-year-old male who comes to the ED with back pain via EMS. EMS stated they thought patient needed a mental health evaluation. Patient refused any labs and denied any thoughts of SI, HI or hallucinations. Patient did not want to stay here in the ED and stated he only wanted some Tylenol and aspirin for pain and then would like to be d/c home. Denied any narcotic. Patient was given an IV dose of Toradol by EMS while he was in route to the ED. I discussed with patient that I could send him home with a prescription for ketorolac but he would need to stop taking his magnesium salicylate and aspirin while taking ketorolac. Patient understood instead he would stop taking those medications while taking the ketorolac. Patient was discharged with a prescription for ketorolac and told to follow-up with PCP in 7 to 10 days for reevaluation. Patient understood and agreed with plan. Return to ED precautions given. Discharge Plan Discharge Patient Disposition: Home Clinical Impression: Chronic back pain Qualifiers: Back pain location: thoracic back pain Back pain laterality: bilateral Qualified Code(s): M54.6 - Pain in thoracic spine Condition: Stable Prescriptions: New ketorolac 10 mg tablet 10 mg PO Q6H PRN (Reason: pain) 5 Days RF: 0 No Action aspirin 500 mg tablet 500 mg PO Q4H RF: 0 acetaminophen [Tylenol 8 Hour] 650 mg tablet extended release 650 mg PO Q8H RF: 0 magnesium salicylate 600 mg tablet 1,200 mg PO DAILY RF: 0 ascorbic acid (vitamin C) 1,000 mg tablet 1 gm PO DAILY RF: 0 furosemide 20 mg tablet 20 mg PO DAILY PRN (Reason: edema) Qty: 10 RF: 2 lisinopril-hydrochlorothiazide 10-12.5 mg tablet 1 tab PO DAILY 30 Days Qty: 30 RF: 2 metoprolol tartrate 50 mg tablet 50 mg PO BID 30 Days Qty: 60 RF: 2 fexofenadine [Leyla Allergy] 60 mg tablet 60 mg PO Q12H RF: 0 benzonatate [Tessalon Perles] 100 mg capsule 100 mg PO TID PRN (Reason: cough) Qty: 30 RF: 1 dextromethorphan polistirex 30 mg/5 mL suspension,extended rel 12 hr 10 ml PO Q12H PRN (Reason: cough) Qty: 89 RF: 0 vitamin B complex [Super B-50 Complex] Capsule 1 cap PO DAILY RF: 0 cetirizine [Zyrtec] 10 mg tablet 10 mg PO DAILY RF: 0 diclofenac sodium 1 % gel 2 gm TOPICAL .twice daily 30 Days Qty: 100 RF: 5 doxycycline hyclate 100 mg capsule 100 mg PO BID 10 Days Qty: 20 RF: 0 albuterol sulfate [ProAir HFA] 90 mcg/actuation HFA aerosol inhaler 2 puff INHALATION QID PRN (Reason: shortness of breath or wheezing) 30 Days Qty: 18 RF: 0 omeprazole 20 mg capsule,delayed release(DR/EC) 20 mg PO DAILY 30 Days Qty: 30 RF: 2 trazodone 50 mg tablet See Rx Instructions .ROUTE .COMPLEX Qty: 30 RF: 1 famotidine 20 mg tablet See Rx Instructions .ROUTE .COMPLEX Qty: 30 RF: 1 Discharge Orders: Discharge Order (Routine); Ordered 03/31/20 Ordered By: Jose Baker Referrals: Kamilla Finley MD [Primary Care Provider] - Discharge Diet: Regular Discharge Activity: Increase activity as tolerated Patient Instructions: Chronic Back Pain (ED) Activity Restrictions/Additional Instructions: I am sending you home with a prescription for ketorolac. You can only take this medication for 5 days consecutively. Your first oral dose you can take 20 mg but then the rest of the doses are 10 mg doses every 6 hours as needed for pain. It is important that you stop taking your magnesium salicylate and aspirin while taking this medication for 5 days. Taking those medications along with the ketorolac is contraindicated!!! You can resume taking your aspirin and magnesium salicylate once you have stopped taking ketorolac. Follow-up with medical provider as directed in 7-10 days. Take medications as prescribed. Return to the ER or your medical provider if condition worsens. Please read and understand discharge instructions. If any questions, please ask. 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
[2020-03-31] MEDS: aspirin 325 mg Tablet PO (21:20)
[2020-03-31] MEDS: acetaminophen 500 mg Tablet 1000 MG PO (21:20)
[2020-03-31 22:45] VITALS: BP 144/97; PULSE 76; RESP 20; TEMP 36.5; O2SAT 97
== END 2020-03-31 22:47 | disposition home or self-care (01) ==
PROVIDERS: Emergency Provider Physician Assistant; PCP Family Medicine
DX: G89.29 Other chronic pain (principal); M54.6 Pain in thoracic spine; Z79.82 Long term (current) use of aspirin; I25.10 Atherosclerotic heart disease of native coronary artery without angina pectoris; I10 Essential (primary) hypertension
CPT/HCPCS: 12345; 99281; 99283

== ENCOUNTER 2025-01-24 16:56 | Outpatient (CLI) | payer MEDICARE, SELFPAY ==
--- NOTE | 2025-01-24 17:04 | USR_ITS ---
PROCEDURE INFORMATION: Exam: US Duplex Left Lower Extremity Veins, Limited Exam date and time: 01/24/2025 5:07 PM Age: 64 years old Clinical indication: Pain; Leg, lower; Left; Additional info: Left leg pain TECHNIQUE: Imaging protocol: Real-time duplex ultrasound of the left extremity with 2-D akers scale, color Doppler flow and spectral waveform analysis including responses to compression and other maneuvers (when performed) with image documentation. Limited exam focused on the left lower extremity veins. COMPARISON: No relevant prior studies available. FINDINGS: Left deep veins: Unremarkable. The common femoral, femoral, proximal profunda femoral and popliteal veins are patent without thrombus. Normal Doppler waveforms. Normal compressibility and/or augmentation response. Superficial veins: Thrombosed superficial vein in the left calf. Soft tissues: Unremarkable. US/CV venous duplex [facility] [id number] IMPRESSION: 1. No evidence of deep vein thrombosis in the left lower extremity. 2. Thrombosed superficial vein in the left calf.
== END 2025-01-24 16:57 | disposition home or self-care (01) ==
LOC: RAD 16:59
PROVIDERS: PCP Family Medicine; Visit Provider Nurse Practitioner Family
DX: I82.812 Embolism and thrombosis of superficial veins of left lower extremity (principal)
CPT/HCPCS: 93971